=== PATIENT | male | born 1945 | race Two or more races ===

== ENCOUNTER 2017-12-15 21:51 | Emergency (ER) | payer MEDICARE ==
[~2017-12-15] VITALS: Ht 182.9 cm; Wt 93.0 kg
[~2017-12-15 21:51] MED LIST: CRESTOR; PAXIL; RISPERDAL
[2017-12-15] MEDS ORDERED: FAMOTIDINE 20 MG TABLET PO ONE (22:30)
[2017-12-15] MEDS ORDERED: predniSONE 50 MG TABLET PO ONE (22:30)
--- NOTE | 2017-12-15 22:39 | NUR ---
Patient discharged to home in stable conditon. Written and verbal after care instructions given. Patient verbalizes understanding of instructions. able to ambulate independently. All belongings taken.
[2017-12-15 22:40] VITALS: BP 128/81
[2017-12-15] MEDS ORDERED: predniSONE 50 MG TABLET ONE (22:46)
[2017-12-15] MEDS ORDERED: FAMOTIDINE 20 MG TABLET ONE (22:46)
== END 2017-12-15 22:55 | disposition home or self-care (01) ==
LOC: ER 21:54
DX: M72.2 Plantar fascial fibromatosis (principal); E78.5 Hyperlipidemia, unspecified
CPT/HCPCS: A4663; J7512

== ENCOUNTER 2018-06-08 23:32 | Emergency (ER) | payer MEDICARE ==
[~2018-06-08] VITALS: Ht 177.8 cm; Wt 98.4 kg
--- NOTE | 2018-06-08 23:40 | NUR ---
Pt ambulated to ER with stable gait with with c/o numbness to left hand, bilateral lower extremities, and both sides of face that started at 0400 today. Facial smile symmetric. Speech clear. Able to speak in complete sentences. AAOx4. Hand regional guide strong.
--- NOTE | 2018-06-08 23:41 | NUR ---
Pt also states he feels a little anxious. at bedside.
--- NOTE | 2018-06-08 23:46 | NUR ---
Pt not CODE STROKE per ER MD
[2018-06-09] LABS: BASOPHILS % (AUTO) 0.5 % (0.0-2.0); EOSINOPHILS # (AUTO) 0.2 K/uL (0.0-0.7); EOSINOPHILS % (AUTO) 2.4 % (0.0-7.0); HEMATOCRIT 42.7 % (36.7-47.1); HEMOGLOBIN 14.1 g/dL (12.5-16.3); LYMPHOCYTES # (AUTO) 3.5 K/uL (20.0-40.0); LYMPHOCYTES % (AUTO) 41.9 % (20.5-51.5); MEAN CORPUSCULAR HGB CONC 33 g/dL (32.5-36.3); MONOCYTES # (AUTO) 0.7 K/uL (2.0-10.0); NEUTROPHILS # (AUTO) 3.9 K/uL (1.8-8.9); NEUTROPHILS % (AUTO) 47.2 % (38.5-71.5); PLATELET COUNT (AUTO) 252 K/uL (152-348); RED BLOOD CELL COUNT(AUTO) 4.86 MIL/uL (4.06-5.63); WHITE BLOOD COUNT (AUTO) 8.3 K/uL (3.6-10.2)
--- NOTE | 2018-06-09 00:05 | NUR ---
Pt went down to radiology dept for CT scan. No acute distress noted.
[2018-06-09 00:08] LABS: CARBON DIOXIDE 32 mmol/L (21-32); CHLORIDE 102 mmol/L (98-107); CREATININE 1.1 mg/dL (0.6-1.3); GLUCOSE 97 mg/dL (74-106); POTASSIUM 4.3 mmol/L (3.5-5.1); UREA NITROGEN, BLOOD 18 mg/dL (7-18)
[2018-06-09 00:14] LABS: ALANINE AMINOTRANSFERASE 14 U/L (16-63); ALKALINE PHOSPHATASE 69 U/L (50-136); ASPARTATE AMINOTRANSFERASE 13 U/L (15-37); BILIRUBIN,DIRECT 0.1 mg/dL (0.0-0.2); BILIRUBIN,TOTAL 0.3 mg/dL (0.2-1.0); TOTAL PROTEIN, SERUM 7.1 g/dL (6.4-8.2)
--- NOTE | 2018-06-09 00:19 | NUR ---
Pt back from radiology dept, back in room 02A.
--- NOTE | 2018-06-09 01:19 | NUR ---
Dr. Gross at bedside for update/re-evaluation.
--- NOTE | 2018-06-09 01:32 | NUR ---
Pt ambulated to restroom in stable gait. Pt states he feels better. Symptoms subsiding.
--- NOTE | 2018-06-09 03:01 | NUR ---
IV removed. Catheter intact and site benign. Pressure and 4x4 gauze applied to site. No bleeding noted.
--- NOTE | 2018-06-09 03:01 | NUR ---
Patient discharged to home in stable conditon. Written and verbal after care instructions given. Patient verbalizes understanding of instructions. Pt left ER in stable gait with . No acute distress noted. Pt states he feels better.
[2018-06-09 03:03] VITALS: BP 140/89
== END 2018-06-09 03:04 | disposition home or self-care (01) ==
LOC: ER 23:33
DX: R20.2 Paresthesia of skin (principal); E78.5 Hyperlipidemia, unspecified; K21.9 Gastro-esophageal reflux disease without esophagitis; Z79.899 Other long term (current) drug therapy
CPT/HCPCS: 36415; 70030-TC; 70450; 71045; 85025; 85730; 93005; A4663